=== PATIENT | female | born 1995 | race Caucasian/White ===

== ENCOUNTER 2020-10-31 12:26 | Observation (INO) ==
[2020-10-31 13:58] LABS: Bilirubin,Urine Negative (Negative); Blood,Urine Negative (Negative); Clarity,Urine Clear (Clear); Color,Urine Colorless (Yellow); Glucose,Urine (UA) Normal (Normal); Ketones,Urine Negative (Negative); Leukocyte Esterase,Urine Negative (Negative); Nitrite,Urine Negative (Negative); Protein,Urine Negative (Neg-Trace); Specific Gravity,Urine 1.008 (1.010-1.025); Urobilinogen,Urine Normal (Normal)
[2020-10-31 15:40] LABS: Basophils % 0.2 %; Eosinophils # 0.1 K/mcL (0.0-0.6); Eosinophils % 1.2 %; Hematocrit 32.4 % (35.3-44.9); Hemoglobin 10.6 g/dL (11.5-15.4); Immature Granulocytes % 0.6 % (0-4); Lymphocytes # 1.5 K/mcL (0.6-4.6); Lymphocytes % 16.3 %; Mean Corpuscular HGB Conc 32.7 g/dL (31.6-35.5); Mean Corpuscular Hemoglobin 28.9 pg (28.0-33.3); Mean Corpuscular Volume 88.3 fL (83.0-100.0); Mean Platelet Volume 10.9 fL (9.4-12.4); Monocytes # 0.6 K/mcL (0.0-1.3); Platelet Count 169 K/mcL (140-400); Red Blood Count 3.67 M/mcL (3.82-4.97); Red Cell Distribution Width 13.2 % (11.5-14.5); Segmented Neutrophils % 75.7 %; White Blood Count 9.3 K/mcL (4.3-11.1)
[2020-10-31 15:59] LABS: Alanine Aminotransferase 19 Units/L (7-52); Aspartate Amino Transferase 18 Units/L (13-39)
[2020-10-31 16:00] LABS: Uric Acid 3.5 mg/dL (2.3-7.6)
== END 2020-10-31 16:37 | disposition home or self-care (01) ==
LOC: 1NENULAB
PROVIDERS: ADMIT Obstetrics & Gynecology; ATTEND Obstetrics & Gynecology

== ENCOUNTER 2020-12-21 06:00 | Inpatient (IN) ==
[2020-12-21] MEDS ORDERED: Azithromycin 500 MG in 0.9 % Sodium Chloride 250 ML IVPB ONE (06:16)
[2020-12-21] MEDS ORDERED: Naloxone 0.4 MG/ML INJ IVP PRN (06:16)
[2020-12-21] MEDS ORDERED: Famotidine 20 MG/2 ML VIAL IVP PRN (06:16)
[2020-12-21] MEDS ORDERED: Metoclopramide 10 MG/2 ML VIAL IVP PRN (06:16)
[2020-12-21] MEDS ORDERED: miSOPROStoL 25 MCG TABLET VG PRN (06:16)
[2020-12-21] MEDS ORDERED: Lidocaine 1% 20 ML MDV INFILT PRN (06:16)
[2020-12-21] MEDS ORDERED: Oxytocin 20 units/ LR 1000 mL 20 UNIT/1,000 ML BAG IVC SCH (06:30)
[2020-12-21 06:51] LABS: Basophils % 0.2 %; Eosinophils # 0.1 K/mcL (0.0-0.6); Eosinophils % 1.1 %; Hematocrit 37.9 % (35.3-44.9); Hemoglobin 12.4 g/dL (11.5-15.4); Immature Granulocytes % 0.5 % (0-4); Mean Corpuscular HGB Conc 32.7 g/dL (31.6-35.5); Mean Corpuscular Hemoglobin 28.6 pg (28.0-33.3); Mean Corpuscular Volume 87.5 fL (83.0-100.0); Mean Platelet Volume 11.8 fL (9.4-12.4); Monocytes # 0.5 K/mcL (0.0-1.3); Monocytes % 5.4 %; Neutrophils # 6.9 K/mcL (1.6-8.9); Platelet Count 185 K/mcL (140-400); Red Blood Count 4.33 M/mcL (3.82-4.97); Red Cell Distribution Width 13.1 % (11.5-14.5); Segmented Neutrophils % 71.8 %; White Blood Count 9.7 K/mcL (4.3-11.1)
[2020-12-21] MEDS ORDERED: Ropivacaine/PF 0.2% 20 ML VIAL EP ONE (07:39)
[2020-12-21] MEDS ORDERED: *HR* FentaNYL (PF) 100 MCG/2 ML VIAL EP ONE (07:39)
[2020-12-21] MEDS ORDERED: EPHEDrine 50 MG/ML VIAL IVP PRN (07:39)
[2020-12-21 07:43] LABS: Adenovirus Not Detected (Not Detect); Bordetella Pertussis Not Detected (Not Detect); Chlamydophila pneumoniae Not Detected (Not Detect); Coronavirus 229E Not Detected (Not Detect); Coronavirus HKU1 Not Detected (Not Detect); Coronavirus NL63 Not Detected (Not Detect); Coronavirus OC43 Not Detected (Not Detect); Human Metapneumovirus Not Detected (Not Detect); Human Rhinovirus/Enterovirus Not Detected (Not Detect); Influenza A Subtype 2009 H1 Not Detected (Not Detect); Influenza B Not Detected (Not Detect); Mycoplasma pneumoniae Not Detected (Not Detect); Parainfluenza Virus 1 Not Detected (Not Detect); Parainfluenza Virus 2 Not Detected (Not Detect); Parainfluenza Virus 3 Not Detected (Not Detect); Parainfluenza Virus 4 Not Detected (Not Detect); Respiratory Syncytial Virus Not Detected (Not Detect); SARS-CoV-2 Not Detected (Not Detect)
[2020-12-21] MEDS: *HR* Nalbuphine 10 MG/ML AMPUL IV PRN ×2 (08:42→11:57)
[2020-12-21 11:32] LABS: Amphetamine Screen,Urine Negative ng/mL (Cutoff=1000); Barbiturate Screen,Urine Negative ng/mL (Cutoff=200); Benzodiazepines Screen,Urine Negative ng/mL (Cutoff=200); Cannabinoid Screen,Urine Negative ng/mL (Cutoff = 50); Cocaine Screen,Urine Negative ng/mL (Cutoff= 300); Opiate Screen,Urine Negative ng/mL (Cutoff=300); Phencyclidine Screen,Urine Negative ng/mL (Cutoff=25)
[2020-12-21] MEDS: Ringers Solution, Lactated 1,000 ML IVC SCH ×2 (11:34→18:10)
[2020-12-21] MEDS: Epidural Premix (fent/bupiv) 110 ML EP SCH (17:57)
[2020-12-21] MEDS ORDERED: *HR* Phenylephrine 10 MG/ML VIAL ONE (18:01)
[2020-12-21] MEDS: Ondansetron 4 MG/2 ML VIAL IVP PRN (18:56)
[2020-12-21] MEDS ORDERED: Famotidine 20 MG/2 ML VIAL IVP ONE (20:19)
[2020-12-22] MEDS: Ondansetron 4 MG/2 ML VIAL IVP PRN (00:44)
[2020-12-22] MEDS: Epidural Premix (fent/bupiv) 110 ML EP SCH (04:32)
[2020-12-22] MEDS ORDERED: *HR* FentaNYL (PF) 100 MCG/2 ML VIAL ONE (04:33)
[2020-12-22] MEDS ORDERED: Oxytocin 20 units/ LR 1000 mL 20 UNIT/1,000 ML BAG IVC SCH (10:27)
[2020-12-22] MEDS ORDERED: Benzocaine/Menthol 56 GM AEROSOL SPRAY TP PRN (10:27)
[2020-12-22] MEDS ORDERED: Oxytocin 20 units/ LR 1000 mL 20 UNIT/1,000 ML BAG IVC ONE (10:27)
[2020-12-22] MEDS: Ibuprofen 600 MG TABLET PO PRN ×2 (10:38→16:56)
[2020-12-22] MEDS: Acetaminophen 325 MG TABLET PO PRN ×2 (11:52→20:58)
[2020-12-22] MEDS: Prenatal Vit/FA 1 EACH TABLET PO SCH (11:52)
[2020-12-22] MEDS ORDERED: Magnesium Sulfate 1 EACH PACKAGE TP SCH (13:45)
[2020-12-22] MEDS ORDERED: Methylergonovine 0.2 MG/ML AMPUL IM ONE (16:07)
[2020-12-22] MEDS ORDERED: Lanolin 7 G OINT...G. TP PRN (23:51)
[2020-12-23] MEDS: Acetaminophen 325 MG TABLET PO PRN (04:39)
[2020-12-23] MEDS: Ibuprofen 600 MG TABLET PO PRN (07:33)
[2020-12-23] MEDS: Prenatal Vit/FA 1 EACH TABLET PO SCH (07:33)
[2020-12-23 07:56] VITALS: BP 98/61
== END 2020-12-23 13:14 | disposition home or self-care (01) | DRG 806 ==
LOC: 1NENULAB 06:13 → 1NENUOBS 12-22 11:22
PROVIDERS: ADMIT Obstetrics & Gynecology; ATTEND Obstetrics & Gynecology